=== PATIENT | male | born 1985 ===

== ENCOUNTER 2025-02-19 19:05 | Outpatient (CLI) | payer BC, SELFPAY | END 2025-02-19 19:06 | disposition home or self-care (01) | LOC: LKVREF 19:09 | PROVIDERS: Visit Provider Family Medicine | DX: E78.00 Pure hypercholesterolemia, unspecified (principal); F41.8 Other specified anxiety disorders; G47.30 Sleep apnea, unspecified; I10 Essential (primary) hypertension; R73.03 Prediabetes | CPT/HCPCS: 80053; 80061; 82306; 82728; 83540; 83550 ==